=== PATIENT | female | born 1975 | race Hispanic/Latino ===

== ENCOUNTER 2017-03-10 07:34 | Emergency (ER) | payer SELFPAY | END 2017-03-10 08:41 | disposition home or self-care (01) | LOC: ERS 07:34 | DX: S16.1XXA Strain of muscle, fascia and tendon at neck level, initial encounter (principal); S40.012A Contusion of left shoulder, initial encounter; J45.909 Unspecified asthma, uncomplicated; V44.5XXA Car driver injured in collision with heavy transport vehicle or bus in traffic accident, initial encounter | CPT/HCPCS: 99283 ==

== ENCOUNTER 2017-11-11 20:01 | Emergency (ER) | payer OTHER, SELFPAY ==
[2017-11-11 20:34] LABS: #Eosinphils 0.1 thou/uL (0.0-0.7); #Monocytes 0.7 thou/uL (0.11-0.59); #Neutrophils 7.3 thou/uL (1.40-6.50); %Basophils 0.3 % (0.0-1.0); %Eosinophils 0.9 % (0.0-10.0); %Monocytes 6.3 % (0.0-10.0); %Neutrophils 65.5 % (42.0-75.0); Mean Corpuscular HGB CONC 34.6 g/dL (32.0-36.0); Mean Corpuscular Hemoglobin 29.5 pg (27.0-31.0); Mean Corpuscular Volume 85.3 fL (78.0-98.0); Mean Platelet Volume 8.6 fL (7.4-10.4); Platelet Count 246 thou/uL (130-400); RBC Distribution Width 12.5 % (11.5-14.5); Red Blood Cell (RBC) Count 4.74 mill/uL (4.20-5.40); White Blood Cell (WBC) Count 11.1 thou/uL (4.8-10.8)
[2017-11-11 20:55] LABS: ALT (SGPT) 13 U/L (8-55); AST (SGOT) 13 U/L (5-34); Albumin 4.5 g/dL (3.5-5.0); Alkaline Phosphatase 87 U/L (40-150); Anion Gap 14 mmol/L (10-20); BUN (Urea Nitrogen) 16 mg/dL (7.0-18.7); Bilirubin, Total 0.4 mg/dL (0.2-1.2); Calc. Creatinine Clearance 0 mL/min (70-130); Calcium 9.6 mg/dL (7.8-10.44); Carbon Dioxide 23 mmol/L (22-29); Chloride 106 mmol/L (98-107); Estimated GFR-MDRD 68; Globulin 3.5 g/dL (2.4-3.5); Glucose 95 mg/dL (70-105); Lipase 19 U/L (8-78); Sodium 139 mmol/L (136-145)
[2017-11-11 21:24] LABS: Bilirubin Negative (Negative); Blood, Urine Large (Negative); Clarity CLEAR (Clear); Glucose, Urine (Dipstick) Negative (Negative); Leukocyte Negative (Negative); Nitrite Negative (Negative); Protein, Urine (Dipstick) Trace mg/dL (Neg-Trace); Specific Gravity, Urine 1.026 (1.002-1.036); Urobilinogen 0.2 mg/dL (0.2-1.0); pH, Urine 5.5 (5.0-9.0)
[2017-11-11 21:27] LABS: Bacteria/HPF Rare-Few HPF (None Seen); Hyaline Casts/LPF 7-10 HYALINE CAST LPF (0-3 Hyaline); RBC/HPF 21-50 HPF (0-3)
[2017-11-11] MEDS ORDERED: Ketorolac Tromethamine 30 MG/ML VIAL ONE (23:06)
--- NOTE | 2017-11-11 23:06 | CT ---
NONCONTRAST ENHANCED CT ABDOMEN AND PELVIS: HISTORY: A 41-year-old with a history of abdominal pain. FINDINGS: Noncontrast enhanced CT images of the abdomen and pelvis demonstrate the lung bases to be unremarkabl e. No evidence of free intraperitoneal air is seen. The liver and spleen are unremarkable. The gal lbladder and pancreas are unremarkable. The adrenal glands are unremarkable. The right kidney conta ins an approximately 6 mm calculus in the lower pole, without evidence of hydronephrosis. The left k idney demonstrates mild to moderate hydronephrosis. The left ureter is mildly to moderately dilated. There is a 3.4 mm radiopaque calculus at the left ureterovesical junction. No dilated loops of sma ll bowel seen. A moderate amount of stool is seen in the colon. The patient has had a previous hyst erectomy. Distal left ureteral obstructing calculus. POS: [facility]
== END 2017-11-12 00:01 | disposition home or self-care (01) ==
LOC: ERS 20:01
DX: N20.2 Calculus of kidney with calculus of ureter (principal); J45.909 Unspecified asthma, uncomplicated
CPT/HCPCS: 36415; 74176; 80053; 81003; 81015; 83690; 85025; 96372; J1885

== ENCOUNTER 2020-11-03 10:26 | Emergency (ER) | payer SELFPAY ==
[2020-11-03 20:44] LABS: SARS-CoV-2 PCR by NAA Not Detected (NotDetected)
== END 2020-11-03 11:22 | disposition home or self-care (01) ==
LOC: ERS 10:26
DX: J45.901 Unspecified asthma with (acute) exacerbation (principal); Z20.822 Contact with and (suspected) exposure to COVID-19
CPT/HCPCS: 99284; U0003; U0005